=== PATIENT | female | born 1985 | race Two or more races ===

== ENCOUNTER 2023-02-18 13:11 | Emergency (ER) | payer OTHER ==
[~2023-02-18] VITALS: Ht 182.9 cm; Wt 129.3 kg
== END 2023-02-18 15:21 | disposition home or self-care (01) ==
LOC: ER 13:11
DX: O26.892 Other specified pregnancy related conditions, second trimester (principal); S90.852A Superficial foreign body, left foot, initial encounter; Z3A.19 19 weeks gestation of pregnancy; Z88.8 Allergy status to other drugs, medicaments and biological substances; W45.8XXA Other foreign body or object entering through skin, initial encounter; Y93.89 Activity, other specified; Y92.018 Other place in single-family (private) house as the place of occurrence of the external cause